=== PATIENT | female | born 1950 | race Caucasian/White ===

== ENCOUNTER → 2022-01-12 08:55 | Outpatient (CLI) | payer MEDICARE, SELFPAY ==
--- NOTE | 2022-01-12 09:02 | NM_ITS ---
FINAL REPORT CLINICAL HISTORY: HYPERPARATHYROIDISM 9:15am 20.0 MCI TC SESTAMIBI FINDINGS: 20.0 mCi Technetium Sestamibi was administered. Planar imaging was performed early and two-hour delayed of the neck and upper thorax. Early imaging shows physiologic uptake within the upper neck involving the salivary glands and lower neck involving the thyroid gland. On delayed imaging there is persistent focus of increased tracer activity in the region the lower pole of the right thyroid with the appearance worrisome for parathyroid adenoma or hyperplasia. IMPRESSION: Findings worrisome for right parathyroid adenoma or hyperplasia. Reviewed, Interpreted and Dictated by Gigi Bowers III, MD Transcribed by Darlin Quarles Authenticated and [facility]
== END ==
PROVIDERS: PCP Family Medicine; Visit Provider Hospitalist
DX: E21.0 Primary hyperparathyroidism (principal)
CPT/HCPCS: 78070; A9500

== ENCOUNTER → 2022-10-12 12:30 | Outpatient (CLI) | payer MEDICARE, SELFPAY ==
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
== END ==
PROVIDERS: PCP Nurse Practitioner Family; Visit Provider Nurse Practitioner Family
DX: S09.93XA Unspecified injury of face, initial encounter (principal)
CPT/HCPCS: 70450; 70486

== ENCOUNTER 2024-01-02 08:37 | Emergency (ER) | payer MEDICARE, SELFPAY ==
[2024-01-02 08:39] VITALS: BP 145/93; PULSE 81; RESP 16; TEMP 36.6; O2SAT 98; BMI 22.1
--- NOTE | 2024-01-02 09:18 | CT_ITS ---
PROCEDURE INFORMATION: Exam: CT Head Without Contrast Exam date and time: 01/02/2024 9:42 AM Age: 73 years old Clinical indication: Injury or trauma; Additional info: Head injury TECHNIQUE: Imaging protocol: Computed tomography of the head without contrast. Radiation optimization: All CT scans at this facility use at least one of these dose optimization techniques: automated exposure control; mA and/or kV adjustment per patient size (includes targeted exams where dose is matched to clinical indication); or iterative reconstruction. COMPARISON: No relevant prior studies available. FINDINGS: Brain: There is no evidence of acute parenchymal hemorrhage, extra-axial collection, or acute infarction. There is no mass effect, midline shift, or downward herniation. Cerebral ventricles: No ventriculomegaly. Paranasal sinuses: Visualized sinuses are unremarkable. No fluid levels. Mastoid air cells: Visualized mastoid air cells are well aerated. Bones: Unremarkable. No acute fracture. Soft tissues: There is right periorbital soft tissue swelling. IMPRESSION: No evidence of acute intracranial process.
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
--- NOTE | 2024-01-02 09:42 | PC.NURSE ---
Patient is back in the room from CT.
--- NOTE | 2024-01-02 09:50 | PC.NURSE ---
dr calderon at bedside
--- NOTE | 2024-01-02 10:01 | PC.NURSE ---
dr calderon speaking with dr ortega for eye follow-up
[2024-01-02 10:12] VITALS: BP 136/78; PULSE 78; RESP 20; TEMP 36.8; O2SAT 99
[2024-01-02] MEDS: TETRACAINE 0.5% OPTH SOL 15ML OP (10:51)
[2024-01-02] MEDS: FLUORESCEIN SODIUM 1MG STRIP 1 MG OP (10:51)
== END 2024-01-02 10:12 | disposition home or self-care (01) ==
PROVIDERS: Emergency Provider Student in an Organized Health Care Education/Training Program
DX: B02.9 Zoster without complications (principal); B02.30 Zoster ocular disease, unspecified; R51.9 Headache, unspecified; R21 Rash and other nonspecific skin eruption; H53.141 Visual discomfort, right eye; W01.0XXA Fall on same level from slipping, tripping and stumbling without subsequent striking against object, initial encounter; Y93.9 Activity, unspecified; Y92.9 Unspecified place or not applicable
CPT/HCPCS: 70450; 99284